=== PATIENT | female | born 1990 | race Caucasian/White ===

== ENCOUNTER 2019-06-26 08:56 | Emergency (ER) | payer MEDICAID ==
[~2019-06-26] VITALS: Ht 157.5 cm; Wt 63.0 kg
[2019-06-26 09:08] VITALS: BP 114/68
[2019-06-26] MEDS ORDERED: LIDOcaine Viscous 15ml cup MM STA (09:36)
[2019-06-26] MEDS ORDERED: guaiFENesin/DM 10ml UD oral syrup PO ONE (09:40)
[2019-06-26] MEDS ORDERED: PENI500T2 PO (09:52)
== END 2019-06-26 10:07 | disposition home or self-care (01) ==
LOC: ER 08:56
DX: J02.0 Streptococcal pharyngitis (principal); B95.5 Unspecified streptococcus as the cause of diseases classified elsewhere; Z79.899 Other long term (current) drug therapy
CPT/HCPCS: 99283